=== PATIENT | female | born 1995 | race Caucasian/White ===

== ENCOUNTER 2024-07-12 12:14 | Outpatient (CLI) | payer OTHER ==
[2024-07-12 12:53] LABS: Basophils % (A) 0 %; Eosinophils # (A) 0.1 k/uL (0-0.7); Eosinophils % (A) 1 %; HCT 37.7 % (34.0-46.0); HGB 12.7 gm/dL (11.4-16.0); Lymphocytes # (A) 1.2 k/uL (1.0-4.8); Lymphocytes % (A) 14 %; MCH 28.1 pg (25.0-35.0); MCHC 33.6 g/dL (31.0-37.0); MCV 83.6 fL (80.0-100.0); Mean Platelet Volume 7.6; Monocytes # (A) 0.3 k/uL (0-1.0); Monocytes % (A) 4 %; Neutrophils # (A) 6.5 k/uL (1.3-7.7); Neutrophils % (A) 79 %; Platelet Count 270 k/uL (150-450); RBC 4.51 m/uL (3.80-5.40); RDW 14.2 % (11.5-15.5); WBC 8.2 k/uL (3.8-10.6)
[2024-07-12 12:56] LABS: Appearance,Urine Clear (Clear); Bilirubin,Urine Negative (Negative); Blood,Urine Negative (Negative); Color,Urine Colorless; Glucose,Urine (UA) Negative (Negative); Ketones,Urine Negative (Negative); Leukocyte Esterase,Urine Negative (Negative); Nitrite,Urine Negative (Negative); PH, Urine 6.5 (5.0-8.0); Protein,Urine Negative (Negative); Specific Gravity,Urine 1.009 (1.001-1.035); Urobilinogen,Urine <2.0 mg/dL (<2.0)
[2024-07-12 13:09] LABS: ALT 17 U/L (4-34); AST 28 U/L (14-36); African American GFR (CKD) >90 (>60 ml/min/1.73 sqM); Blood Urea Nitrogen 10 mg/dL (7-17); LDH 165 U/L (120-246); Non-African American GFR(CKD) >90 (>60 ml/min/1.73 sqM); Uric Acid 5.5 mg/dL (3.7-7.4)
[2024-07-12] MEDS: LABETALOL 100 MG TAB PO ONE (13:11)
[2024-07-12 13:22] LABS: Creatinine,Urine Random 50.8 mg/dL; Protein/Creatinine Ratio,Urine 0.236
[2024-07-12 17:47] VITALS: BP 158/103; PULSE 100; RESP 17; TEMP 97.7
--- NOTE | 2024-08-29 10:25 | P.MSEPDOC ---
Presenting Problems - Arrival Data Date of Arrival on Unit: 07/12/24 Time of Arrival on Unit: 12:14 Mode of Transport: Ambulatory - Complaint OB-Reason for Admission/Chief Complaint: Elevated Blood Pressure Comment: pt presents to triage for elevated bp's at home, 160/110,157/98 Medical History - Information : 1 Para: 0 Term: 0 : 0 Abortions: Spontaneous or Elective: 0 Number of Living Children: 0 - Gestational Age Gestational Age by SHAUN (wks/days): 35 Weeks and 2 Days Review of Systems - Review of Systems Constitutional: No problems Breast: No problems ENT: No problems Cardiovascular: No problems Respiratory: No problems Gastrointestinal: No problems Genitourinary: No problems Musculoskeletal: No problems Neurological: No problems Skin: No problems Vital Signs - Temperature Temperature: 97.7 F Temperature Source: Temporal Artery Scan - Pulse Right Brachial Pulse Rate: 100 Pulse Assessment Method: Automatic Cuff - Respirations Respiratory Rate: 17 Oxygen Delivery Method: Room Air O2 Sat by Pulse Oximetry: 97 - Blood Pressure Right Arm Blood Pressure: 158/103 Blood Pressure Mean: 121 Blood Pressure Source: Automatic Cuff Medical Screen Scoring - Cervical Exam Dilation (cm): 0 - Uterine Contractions Frequency From (mins): 4 Frequency To (mins): 7 Intensity: Mild Resting: Soft to palpation - Assessment - Baby A Baseline FHR: 135 Heart Rate - NICHD Category: Category I (Normal) NST: Reactive Physician Notification - Physician Notified Physician Notified Date: 07/12/24 Physician Notified Time: 16:10 Physician: China Thomson New Order Received: Yes - Notification Comment Comment: reactive nst, cervix closed, all preeclampsia labs wnl, po labetolol 100 mg given, bp's came down, gbs swab obtained and sent, labetolol script called into [facility] pharmacy in [facility] and [place] on [address], pt to take 100 mg po daily, instructed to return for evaluation and assessment of having elevated bp's 150-160/100's at home, pt has appt on Monday in the office with Dr. Murillo Maternal Triage Index - Maternal Triage Index Presenting for scheduled procedure w/no complaint: No - Stat/Priority 1 Stat Priority 1: No - Urgent/Priority 2 Urgent Priority 2: Yes Provider Notified: China Thomson Provider Notified Time: 12:30 Criteria Met for Priority 2: pt presents to triage for elevated bp's at home, 160/110,157/98 Disposition - Disposition OB Disposition: Triage, Discharge to home, Written follow up instructions reviewed Discharge Date: 07/12/24 Discharge Time: 16:20 I agree with the RN Medical Screening Exam: Yes Case reviewed; plan agreed upon as documented in EMR&OBIX.: Yes Diagnosis: RELATED CONDITIONS, UNSPECIFIED, THIRD TRIMESTER
== END 2024-07-12 16:20 | disposition home or self-care (01) ==
LOC: FBPOP 12:14
PROVIDERS: ATTEND Obstetrics & Gynecology Obstetrics
CPT/HCPCS: 36415; 59025; 81003; 82565; 82570; 83615; 84156; 84450; 84460; 84520; 84550; 85025; 87081; 99215

== ENCOUNTER 2024-07-16 10:13 | Outpatient (CLI) | payer OTHER ==
[2024-07-16 11:11] LABS: Appearance,Urine Cloudy (Clear); Bacteria,Urine Many /hpf; Bilirubin,Urine Negative (Negative); Blood,Urine Negative (Negative); Budding Yeast,Urine Many /hpf; Color,Urine Colorless; Glucose,Urine (UA) Negative (Negative); Ketones,Urine Negative (Negative); Leukocyte Esterase,Urine Negative (Negative); Nitrite,Urine Negative (Negative); PH, Urine 6.5 (5.0-8.0); Protein,Urine Negative (Negative); RBC,Urine 3 /hpf (0-5); Specific Gravity,Urine 1.006 (1.001-1.035); Squamous Epithelial Cell,Urine 1 /hpf (0-4); Urobilinogen,Urine <2.0 mg/dL (<2.0); WBC,Urine 18 /hpf (0-5)
[2024-07-16 11:34] LABS: Basophils % (A) 0 %; Eosinophils % (A) 0 %; HGB 11.8 gm/dL (11.4-16.0); Lymphocytes # (A) 1.1 k/uL (1.0-4.8); Lymphocytes % (A) 12 %; MCH 28.4 pg (25.0-35.0); MCHC 33.8 g/dL (31.0-37.0); Mean Platelet Volume 7.8; Monocytes # (A) 0.4 k/uL (0-1.0); Monocytes % (A) 4 %; Neutrophils # (A) 7.5 k/uL (1.3-7.7); Neutrophils % (A) 82 %; Platelet Count 255 k/uL (150-450); RBC 4.17 m/uL (3.80-5.40); RDW 14.4 % (11.5-15.5); WBC 9.2 k/uL (3.8-10.6)
[2024-07-16 11:45] LABS: ALT 19 U/L (4-34); AST 35 U/L (14-36); African American GFR (CKD) >90 (>60 ml/min/1.73 sqM); Blood Urea Nitrogen 6 mg/dL (7-17); LDH 138 U/L (120-246); Non-African American GFR(CKD) >90 (>60 ml/min/1.73 sqM); Uric Acid 5.3 mg/dL (3.7-7.4)
[2024-07-16 11:45] LABS: Creatinine,Urine Random 37.3 mg/dL; Protein/Creatinine Ratio,Urine 0.375
[2024-07-16 13:14] VITALS: BP 147/100; PULSE 75; RESP 16; TEMP 98.5
--- NOTE | 2024-08-06 20:38 | P.MSEPDOC ---
Presenting Problems - Arrival Data Date of Arrival on Unit: 07/16/24 Time of Arrival on Unit: 10:13 Mode of Transport: Ambulatory - Complaint OB-Reason for Admission/Chief Complaint: PIH Medical History - Information : 1 Para: 0 Number of Living Children: 0 - Gestational Age Gestational Age by SHAUN (wks/days): 35 Weeks and 6 Days Review of Systems - Review of Systems Constitutional: No problems Breast: No problems ENT: No problems Cardiovascular: No problems Respiratory: No problems Gastrointestinal: No problems Genitourinary: No problems Musculoskeletal: No problems Neurological: No problems Skin: No problems Vital Signs - Temperature Temperature: 98.5 F Temperature Source: Oral - Pulse Right Sitting Brachial Pulse Rate: 75 Pulse Assessment Method: Automatic Cuff - Respirations Respiratory Rate: 16 Oxygen Delivery Method: Room Air O2 Sat by Pulse Oximetry: 100 - Blood Pressure Right Arm Sitting Blood Pressure: 147/100 Blood Pressure Mean: 115 Blood Pressure Source: Automatic Cuff Medical Screen Scoring - Assessment - Baby A Baseline FHR: 135 Heart Rate - NICHD Category: Category I (Normal) NST: Reactive Physician Notification - Physician Notified Physician Notified Date: 07/16/24 Physician Notified Time: 12:12 Physician: Viola Murillo New Order Received: Yes - Notification Comment Comment: med increase and DC home Maternal Triage Index - Maternal Triage Index Presenting for scheduled procedure w/no complaint: No - Stat/Priority 1 Stat Priority 1: No - Urgent/Priority 2 Urgent Priority 2: Yes Provider Notified: Viola Murillo Provider Notified Time: 12:12 Criteria Met for Priority 2: elevated BP Disposition - Disposition OB Disposition: Discharge to home Discharge Date: 07/16/24 Discharge Time: 13:00 I agree with the RN Medical Screening Exam: Yes Physician's MSE Comment: I have neither seen nor examined the patient Case reviewed; plan agreed upon as documented in EMR&OBIX.: Yes Diagnosis: GESTATIONAL HTN W/O SIGNIFICANT PROTEINURIA, THIRD TRIMESTER
== END 2024-07-16 13:00 | disposition home or self-care (01) ==
LOC: FBPOP 10:13
PROVIDERS: ATTEND Obstetrics & Gynecology
CPT/HCPCS: 36415; 59025; 81001; 82565; 82570; 83615; 84156; 84450; 84460; 84520; 84550; 85025; 99215

== ENCOUNTER 2024-07-31 16:00 | Inpatient (IN) | payer OTHER ==
[2024-07-31] MEDS: LACTATED RINGERS 1,000 ML IV SCH (17:00)
[2024-07-31 17:14] LABS: Basophils % (A) 0 %; Eosinophils # (A) 0.1 k/uL (0-0.7); Eosinophils % (A) 1 %; HCT 36.2 % (34.0-46.0); HGB 11.8 gm/dL (11.4-16.0); Lymphocytes # (A) 1.2 k/uL (1.0-4.8); Lymphocytes % (A) 13 %; MCH 27.7 pg (25.0-35.0); MCHC 32.5 g/dL (31.0-37.0); MCV 85.1 fL (80.0-100.0); Mean Platelet Volume 8.1; Monocytes # (A) 0.3 k/uL (0-1.0); Monocytes % (A) 3 %; Neutrophils # (A) 7.2 k/uL (1.3-7.7); Neutrophils % (A) 82 %; Platelet Count 236 k/uL (150-450); RBC 4.26 m/uL (3.80-5.40); RDW 14.6 % (11.5-15.5); WBC 8.8 k/uL (3.8-10.6)
[2024-07-31] MEDS: OXYTOCIN 30 UNITS/500 ML NS 30 UNIT in SALINE 1 500ML.BAG IV SCH (18:30)
[2024-07-31] MEDS: LABETALOL 100 MG TAB PO SCH (20:26)
[2024-07-31] MEDS: NALBUPHINE 10 MG/ML (10 ML MDV) IV PRN (21:29)
[2024-08-01] MEDS ORDERED: fentaNYL (PF) 50 MCG/ML 5 ML AMP ONE (08:04)
[2024-08-01] MEDS ORDERED: ROPIVACAINE 5 MG/ML 30 ML VIAL ONE (08:04)
[2024-08-01] MEDS ORDERED: SODIUM CHLORIDE 0.9% 250 ML BAG ONE (08:04)
--- NOTE | 2024-08-01 10:34 | P.HPOB ---
History of Present Illness H&P Date: 07/31/24 Chief Complaint: Medical induction of labor Ms. oCrreia is a 29 year old at 38 weeks and 1 days gestation with EDC of 08-14-2024 by LMP consistent with 7 week US who presents to for medical induction of labor for chronic hypertension on antihypertensives. Her most recent regimen is Labetalol 300mg BID. Her has otherwise been uncomplicated. The fetus is estimated in the 84%ile based on a 32 week growth US. work-up: blood type AB positive, antibody screen negative, rubella immune, VDRL non-reactive, HBsAg negative, HIV negative, HCV non-reactive, gono rrhea negative, chlamydia negative, 1 hour GTT wnl. GBS negative. s/p TDap. Past Medical History Past Medical History: Cancer Additional Past Medical History / Comment(s): basal cell carcinoma rt shoulder History of Any Multi-Drug Resistant Organisms: None Reported Additional Past Surgical History / Comment(s): skin ca removal Past Anesthesia/Blood Transfusion Reactions: No Reported Reaction Past Psychological History: Anxiety Smoking Status: Former smoker Past Alcohol Use History: None Reported Past Drug Use History: None Reported - Past Family History Father Family Medical History: Cancer, Hypertension Medications and Allergies Home Medications Medication Instructions Recorded Confirmed Type Aspirin [Adult Low Dose Aspirin EC] 81 mg PO DAILY 07/12/24 07/31/24 History Vit No.179/Iron/Folic 1 each PO DAILY 07/12/24 07/31/24 History [ Tablet] Labetalol [Trandate] 300 mg PO DAILY 07/16/24 07/31/24 History Allergies Allergy/AdvReac Type Severity Reaction Status Date / Time No Known Allergies Allergy Verified 07/31/24 16:58 Exam Vital Signs Temp Pulse Resp BP Pulse Ox 07/31/24 17:19 97.7 F 90 16 137/94 98 Intake and Output 07/31/24 07/31/24 07/31/24 06:59 14:59 22:59 Other: Weight 101.151 kg Focused physical exam is performed. This is a healthy-appearing in no apparent distress. Breathing is non-labored. Abdomen is gravid and non-tender. Cervical exam is fingertip, long, and high. A sterile speculum was used to place a cooks catheter without difficulty, 60cc of sterile water were used to fill each balloon. Extremities non-tender and non-edematous. heart tones are Category I and tocometer is not graphing contractions. Results Result Diagrams: 07/31/24 16:50 Assessment and Plan Assessment: 29 year old at 38 weeks and 1 day here for medical induction of labor for chronic hypertension Plan: Admit, clear liquid diet, IV nubain prn while cooks catheter in place > once removed epidural prn. Continuous EFM and tocometer.
[2024-08-02] MEDS ORDERED: METHYLERGONOVINE 0.2 MG/ML 1 ML AMP IM PRN (00:30)
[2024-08-02] MEDS ORDERED: miSOPROStoL 200 MCG TAB PO PRN (00:30)
[2024-08-02] MEDS ORDERED: CARBOPROST TROMETHAMINE 250 MCG/ML 1 ML AMP IM PRN (00:30)
[2024-08-02] MEDS ORDERED: TRANEXAMIC 1,000 MG/100ML-NACL 1,000 MG in EMPTY BAG 1 BAG IV PRN (00:30)
[2024-08-02] MEDS: CITRIC ACID-SODIUM CITRATE 15 ML CUP PO ONE (00:43)
[2024-08-02] MEDS ORDERED: KETOROLAC 15 MG/ML 1 ML VIAL ONE (00:52)
[2024-08-02] MEDS ORDERED: MORPHINE SULFATE (PF) 0.3 MG/0.3 ML SYR ONE (00:52)
[2024-08-02] MEDS ORDERED: OXYTOCIN 30 UNITS/500 ML NS BAG IV ONE (00:52)
[2024-08-02] MEDS ORDERED: fentaNYL (PF) 50 MCG/ML 2 ML AMP ONE (00:52)
[2024-08-02] MEDS ORDERED: ceFAZolin 1 GM/50 ML BAG (PMX) ONE (00:52)
[2024-08-02] MEDS ORDERED: ONDANSETRON 4 MG/2 ML VIAL ONE (00:52)
--- NOTE | 2024-08-02 02:05 | P.OP ---
Date of Procedure: 08/02/24 Preoperative Diagnosis: 1. Term IUP at 38 weeks and 1 day 2. Chronic Hypertension 3. Maternal Exhaustion 4. Maternal Request for Section Postoperative Diagnosis: Same Procedure(s) Performed: Primary Lower Transverse Section Implants: None Anesthesia: epidural Surgeon: Viola Murillo Scribing Machine Operator #1: Lucía Cadet Estimated Blood Loss (ml): 1,000 IV fluids (ml): 1,800 Urine output (ml): 300 Pathology: none sent Condition: stable Disposition: floor Indications for Procedure: Ms. Correia is a at 38 weeks and 1 day who was being medically induced for p oorly controlled chronic hypertension. The patient was complete and pushing for 2-3 hours with minimal descent. She was exhausted and requested section. The risks, benefits, and alternatives to section were discussed with the patient including risk of bleeding, infection, damage to surrounding structures including bladder/bowels/ureters, and post-operative VTE. The patient understands these risks and desires to proceed with section. Operative Findings: Viable male in occiput transverse presentation. Meconium-stained fluid. Apgars 7/9. Weight 7 pounds and 7 ounces (3360 grams). Normal uterus, bilateral fallopian tubes, and ovaries. Description of Procedure: The patient was taken back to the operating room where spinal anesthesia was found to be adequate. Two grams of Ancef and 500 milligrams of Azithromycin were given for infection prophylaxis. Vaginal preparation was done. She was prepared and draped in the dorsal supine position with a leftward tilt. A Pfannenstiel skin incision was made with the scalpel. The incision was carried down to the fascia with a bovie. The fascia was incised and extended laterally with Tao scissors. The superior aspect of the fascia was grasped with the Juve clamps. The underlying rectus muscle was dissected off sharply with Tao scissors. In a similar fashion, the inferior aspect of the fascia was elevated with Juve clamps and the rectus muscle and pyramidalis were dissected off. Excellent hemostasis was achieved with the bovie. The rectus muscle was in the midline down to the level of the pubic symphysis. Pre-peritoneal fatty tissue was bluntly dissected to expose the peritoneum. The peritoneum was found to be free of adherent bowel and entered sharply with Tao scissors. The peritoneal incision was extended superiorly and inferiorly to the bladder reflection with good visualization of the bladder. The bladder blade was inserted and vesicouterine peritoneum was identified. Intraabdominal survey revealed scant, clear peritoneal fluid and the thinned-out lower uterine segment. The vesicouterine peritoneum was opened with scissors and the bladder flap was developed. The bladder blade was repositioned to keep the bladder out of the operative field. The lower uterine segment was incised with a scalpel. Meconium stained fluid was present. The uterine incision was extended bluntly with lateral and upward traction. The fetus was in cephalic presentation. The head was elevated out of the pelvis with special attention paid to avoid using the uterine incision as a fulcrum. Gentle fundal pressure was applied once the head was brought into the incision. The infant was delivered with no difficulty and was noted to be crying spontaneously. The mouth and nose were suctioned with a bulb. The cord was clamped and cut. The infant was handed off to the assistant director of admissions. IV oxytocin was initiated to facilitate uterine contractions. The placenta was delivered intact with manual massage of uterine fundus. The uterus was then exteriorized and the inside of the uterus was gently wiped with a lap sponge to assure complete removal of placental membranes. The uterine incision was closed with 0-Vicryl suture in a running locked fashion. A second imbricating layer was placed with 0-Vicryl. The ovaries and tubes were found to be normal. The uterus, tubes, and ovaries were then gently returned to the abdominal cavity. The abdomen was copiously suction irrigated. The uterine incision was reinspected and excellent hemostasis was noted. The fascial layer was closed with a 0-Vicryl suture. The subcutaneous tissue was reapproximated with 2-0 Plain Gut. The skin was closed with 4-0 Monocryl in a subcuticular fashion.The patient tolerated the procedure well. All the counts were correct times two. The patient was taken to the recovery room in a stable condition. A physician surgical coder was utilized for the entire procedure due to the need for tissue retraction, dissection of vital structures, prevention and management of blood loss, and reduction in overall operative and anesthesia time as is the standard of care.
[2024-08-02] MEDS ORDERED: diphenhydrAMINE 25 MG CAP PO PRN (02:06)
[2024-08-02] MEDS ORDERED: METOCLOPRAMIDE 5 MG/ML 2 ML VIAL IVP PRN (02:06)
[2024-08-02] MEDS ORDERED: ONDANSETRON 4 MG/2 ML VIAL IVP PRN (02:06)
[2024-08-02] MEDS ORDERED: diphenhydrAMINE 50 MG/ML 1 ML VIAL IVP PRN ×2 (02:06)
[2024-08-02] MEDS ORDERED: diphenhydrAMINE 50 MG CAP PO PRN (02:06)
[2024-08-02] MEDS ORDERED: SIMETHICONE 80 MG CHEWABLE PO PRN (02:06)
[2024-08-02] MEDS ORDERED: NALOXONE 0.4 MG/ML 1 ML VIAL IV PRN (02:06)
[2024-08-02] MEDS ORDERED: ZOLPIDEM 5 MG TAB PO PRN (02:06)
[2024-08-02] MEDS: AZITHROMYCIN 500 MG in SODIUM CHLORIDE 0.9% 250 ML IVPB STA (03:07)
[2024-08-02] MEDS: KETOROLAC 15 MG/ML 1 ML VIAL IVP SCH (08:28)
[2024-08-02] MEDS: ACETAMINOPHEN TAB 500 MG TAB PO SCH (08:32)
--- NOTE | 2024-08-02 12:10 | P.PNOBGPC ---
Subjective - Subjective Principal diagnosis: s/p primary section Interval history: The patient is doing well this morning and had no acute events overnight. She has no complaints this morning. She reports minimal lochia, passing flatus, laird still in place for a few more hours by patient request, ambulating, and eating/drinking without nausea or vomiting. She is breastf-eeding her infant without difficulty. She denies chest pain, shortness of breathing, fevers, or chills overnight. She denies pain or swelling in the legs. Patient reports: Reports appetite normal, Reports voiding normally, Reports pain well controlled, Reports ambulating normally [place]: doing well Objective - Vital Signs Latest vital signs: Vital Signs Temp Pulse Resp BP Pulse Ox 08/02/24 10:00 98.6 F 75 16 95/55 08/02/24 08:49 98.1 F 112 H 16 150/74 95 08/02/24 06:21 103 H 16 08/02/24 04:30 103 H 16 121/65 08/02/24 04:15 100 16 126/69 08/02/24 04:00 104 H 16 126/70 99 08/02/24 03:45 94 16 134/77 08/02/24 03:30 93 16 133/66 08/02/24 03:15 98 16 141/70 98 08/02/24 03:00 92 16 135/64 98 08/02/24 02:45 94 16 151/81 98 08/02/24 02:30 86 16 138/80 96 08/02/24 02:15 98.5 F 98 16 131/78 94 L Intake and Output 08/01/24 08/02/24 08/02/24 22:59 06:59 14:59 Intake Total 1800 Output Total 300 2048 Balance -300 -248 Intake: IV 1800 Output: Urine 300 1000 Estimated Blood Loss 998 Output, Quantitative 50 Blood Loss Other: Voiding Method Indwelling Catheter - Exam Extremities: Present: normal Abdomen: Present: normal appearance, soft Incision: Present: normal, dry, dressed Uterus: Present: normal, firm Assessment and Plan Assessment: 29 year old now POD#1 s/p primary section 2/2 maternal exhaustion remote from delivery and request for section Plan: 1. Postoperative. Meeting all postoperative milestones appropriately. 2. Viable male infant at bedside. Plan for circumcision today. 3. Chronic hypertension. Currently moderately well controlled on Labetalol 300mg BID, continue to monitor. Dispo: Anticipate discharge home tomorrow if BPs stable. Continue inpatient management at this time.
[2024-08-02] MEDS: IBUPROFEN 600 MG TAB PO SCH (14:34)
[2024-08-02] MEDS: SENNOSIDES-DOCUSATE SODIUM 1 EACH TAB PO SCH (20:24)
[2024-08-02] MEDS: LACTATED RINGERS 1,000 ML IV SCH (21:18)
[2024-08-02] MEDS: ACETAMINOPHEN IV (For NPO) 1,000 MG in EMPTY BAG 1 BAG IVPB SCH (21:19)
[2024-08-03 04:43] LABS: Basophils % (A) 0 %; Eosinophils # (A) 0.1 k/uL (0-0.7); Eosinophils % (A) 0 %; HCT 28.2 % (34.0-46.0); Lymphocytes # (A) 1.2 k/uL (1.0-4.8); Lymphocytes % (A) 9 %; MCH 28.2 pg (25.0-35.0); MCHC 33.2 g/dL (31.0-37.0); MCV 85.1 fL (80.0-100.0); Mean Platelet Volume 8.7; Monocytes # (A) 0.4 k/uL (0-1.0); Monocytes % (A) 3 %; Neutrophils # (A) 11.8 k/uL (1.3-7.7); Neutrophils % (A) 87 %; Platelet Count 173 k/uL (150-450); RBC 3.31 m/uL (3.80-5.40); WBC 13.7 k/uL (3.8-10.6)
[2024-08-03 04:53] LABS: HGB 9.3 gm/dL (11.4-16.0)
[2024-08-03 10:55] VITALS: RESP 16
--- NOTE | 2024-08-03 12:10 | P.PNOBGPC ---
Subjective - Subjective Patient reports: Reports appetite normal, Reports voiding normally, Reports pain well controlled, Reports ambulating normally : doing well Objective - Vital Signs Latest vital signs: Vital Signs Temp Pulse Resp BP Pulse Ox 08/03/24 08:00 98.1 F 96 16 131/73 97 08/03/24 00:00 97.8 F 85 18 124/72 100 08/02/24 20:00 98.3 F 84 18 121/78 98 08/02/24 16:30 99.0 F 92 16 116/68 94 L Intake and Output 08/02/24 08/03/24 08/03/24 22:59 06:59 14:59 Output Total 950 Balance -950 Output: Urine 950 Other: # Voids 1 - Exam Extremities: Present: normal, edema (Trace to 1+ bilateral edema to ankles) Abdomen: Present: normal appearance, soft. Absent: distention, tenderness Incision: Present: normal, dry, intact Uterus: Present: normal, firm (The uterine fundus is tonic and appropriately tender below the umbilicus.) - Labs Labs: Abnormal Lab Results - Last 24 Hours (Table) 08/03/24 Range/Units 03:43 WBC 13.7 H (3.8-10.6) k/uL RBC 3.31 L (3.80-5.40) m/uL Hgb 9.3 L D (11.4-16.0) gm/dL Hct 28.2 L (34.0-46.0) % Neutrophils # 11.8 H (1.3-7.7) k/uL Assessment and Plan (1) Status post section Current Visit: Yes Status: Acute Code(s): Z98.891 - HISTORY OF UTERINE SCAR FROM PREVIOUS SURGERY SNOMED Code(s): 491418341 Plan: Continue routine and postoperative care. I would anticipate discharge home tomorrow pending no complications. Vital signs are currently stable and we may choose to decrease her dose of labetalol prior to discharge. I have encouraged her to continue to ambulate in the hallways routinely.
--- NOTE | 2024-08-03 17:33 | P.PN ---
Progress Note - Text Progress Note Date: 08/03/24 Postoperative day 1 status post section under epidural anesthesia, and epidural morphine given for postoperative analgesia, patient doing well, there is no anesthesia related complications, Patient had no headache, vital signs stable , Assessment and plan= postop day 1 status post , doing well there is no anesthesia related complication.
[2024-08-03] MEDS: LABETALOL 100 MG TAB PO SCH (21:19)
[2024-08-04 09:34] VITALS: BP 139/87; PULSE 89; TEMP 97.7
--- NOTE | 2024-08-04 11:38 | P.DS ---
Providers Date of admission: 07/31/24 16:00 Expected date of discharge: 08/04/24 Attending physician: Viola Murillo MD Primary care physician: Stated None - Discharge Diagnosis(es) (1) Status post section Current Visit: Yes Status: Acute Hospital Course: The patient is a 29-year-old 1 para 0 admitted at 38 and 1 sevenths weeks by good dating parameters. She is admitted for induction of labor secondary to chronic hypertension with relatively worsening control. She has been on labetalol 300 mg twice daily. On labor and delivery, she had Pitocin started followed by artificial rupture of membranes. She had an epidural catheter placed for analgesia during the active phase of labor and ultimately progressed to complete but pushed for some time with no significant descent of the head. She expressed exhaustion and desire to be delivered by section. She was therefore taken to the operating room where she was delivered by primary low-transverse section of a viable 7 pound 7 ounce baby boy with Apgars of 7 at 1 minute and 9 at 5 minutes. Her and postoperative courses were unremarkable with vital signs remaining stable and her temperature was afebrile throughout. She did have decreasing requirements for labetalol in the hospital and was stable on the morning of postoperative day #2 on labetalol 100 mg twice daily. She was deemed stable for discharge and was discharged home to follow-up in the office in 2 weeks for an incision check in 6 weeks routinely. Discharge instructions included calling for any significantly increased bleeding or foul-smelling lochia, significantly increased fever or abdominal pain, perineal complaints, breast complaints, incisional complaints, or anything else that concerned her. She was additionally instructed to have nothing in the vagina for at least 6 weeks time to include intercourse. She was additionally instructed to do no heavy lifting over the same period of time and to abstain from driving until off of all pain medications or 2 weeks time, whichever came first. She understood her instructions and agrees to follow-up as noted above. Discharge medications included continued vitamins as she has opted to breast-feed. She was otherwise to continue with labetalol 100 mg twice daily. She was to use [id number] analgesic pain medications as needed. She was provided a prescription for oxycodone 5 mg, 1-2 p.o. every 6 hours as needed pain, #20 dispensed with no refills. Maternal blood type is AB+ and rubella status is immune. Procedures: #1. Pitocin induction #2. Artificial rupture of membranes #3. Epidural analgesia #4. Primary low-transverse section Patient Condition at Discharge: Stable Plan - Discharge Summary New Discharge Prescriptions: No Action Aspirin [Adult Low Dose Aspirin EC] 81 mg PO DAILY Vit No.179/Iron/Folic [ Tablet] 1 each PO DAILY Labetalol [Trandate] 300 mg PO DAILY Discharge Medication List Aspirin [Adult Low Dose Aspirin EC] 81 mg PO DAILY 07/12/24 [History] Vit No.179/Iron/Folic [ Tablet] 1 each PO DAILY 07/12/24 [History] Labetalol [Trandate] 300 mg PO DAILY 07/16/24 [History] Follow up Appointment(s)/Referral(s): Viola Murillo MD [STAFF PHYSICIAN] - 2 Weeks Discharge Disposition: HOME SELF-CARE
== END 2024-08-04 12:55 | disposition home or self-care (01) | DRG 788 ==
LOC: 4FBP 16:00
PROVIDERS: ADMIT Obstetrics & Gynecology; ATTEND Obstetrics & Gynecology
PROC: 10907ZC Drainage of Amniotic Fluid, Therapeutic from Products of Conception, Via Natural or Artificial Opening (ICD-10-PCS; principal; 2024-07-31)
PROC: 3E033VJ Introduction of Other Hormone into Peripheral Vein, Percutaneous Approach (ICD-10-PCS; principal; 2024-07-31)
PROC: 0U7C7ZZ Dilation of Cervix, Via Natural or Artificial Opening (ICD-10-PCS; principal; 2024-07-31)
PROC: 10D00Z1 Extraction of Products of Conception, Low, Open Approach (ICD-10-PCS; 2024-08-02)
DX: O10.92 Unspecified pre-existing hypertension complicating childbirth (principal); O75.81 Maternal exhaustion complicating labor and delivery; O77.0 Labor and delivery complicated by meconium in amniotic fluid; O32.2XX0 Maternal care for transverse and oblique lie, not applicable or unspecified; Z3A.38 38 weeks gestation of pregnancy; Z37.0 Single live birth; Z79.82 Long term (current) use of aspirin; Z79.899 Other long term (current) drug therapy; Z87.891 Personal history of nicotine dependence; Z85.828 Personal history of other malignant neoplasm of skin
CPT/HCPCS: 85025; 86850; 86900; 86901

== ENCOUNTER → 2025-02-15 | Outpatient (CLI) | payer OTHER ==
[2025-02-15 13:20] LABS: Basophils # (A) 0.04 X 10*3/uL (0.00-0.10); Basophils % (A) 0.6 %; Eosinophils % (A) 1.4 %; HCT 44.1 % (37.2-46.3); HGB 13.8 g/dL (12.0-15.0); Lymphocytes # (A) 1.75 X 10*3/uL (0.90-5.00); Lymphocytes % (A) 24.2 %; MCH 26.7 pg (27.0-32.0); MCHC 31.3 g/dL (32.0-37.0); MCV 85.3 FL (80.0-97.0); Mean Platelet Volume 9.5 FL (9.5-12.2); Monocytes % (A) 5.5 %; NRBC Per 100 WBC 0 X 10*3/uL (0.00-0.01); Neutrophils # (A) 4.91 X 10*3/uL (1.80-7.70); Platelet Count 303 X 10*3/uL (140-440); RBC 5.17 X 10*6/uL (4.10-5.20); RDW 12.4 % (11.5-14.5); WBC 7.22 X 10*3/uL (4.50-10.00)
[2025-02-15 13:59] LABS: Chol/HDL Ratio 4.18 Ratio
[2025-02-15 14:00] LABS: ALT 23 U/L (8-44); AST 20 U/L (13-35); Albumin 4.3 g/dL (3.8-4.9); Albumin/Globulin Ratio 1.34 Ratio (1.60-3.17); Alkaline Phosphatase 127 U/L (41-126); BUN/Creat Ratio 12.44 Ratio (12.00-20.00); Blood Urea Nitrogen 11.2 mg/dL (9.0-27.0); Calcium 9.4 mg/dL (8.7-10.3); Carbon Dioxide 23.8 mmol/L (21.6-31.8); Chloride 104 mmol/L (96-109); Globulin 3.2 g/dL (1.6-3.3); Glucose 95 mg/dL (70-110); Potassium 4.7 mmol/L (3.5-5.5); Sodium 140 mmol/L (135-145); Total Bilirubin 0.5 mg/dL (0.3-1.2); Total Protein 7.5 g/dL (6.2-8.2)
== END | disposition home or self-care (01) ==
LOC: LABWHC1 09:02
PROVIDERS: ATTEND Internal Medicine
DX: Z00.00 Encounter for general adult medical examination without abnormal findings (principal)
CPT/HCPCS: 36415; 80053; 80061; 84443; 85025